=== PATIENT | female | born 1965 | race Caucasian/White ===

== ENCOUNTER 2020-04-09 10:29 | Emergency (ER) | payer OTHER ==
[2020-04-09 11:10] LABS: HEMOGLOBIN 11.9 gm/dl (12.3-15.3); RED BLOOD COUNT 4.5 M/UL (4.00-5.10); WHITE BLOOD COUNT 5.8 K/UL (4.5-11.0)
[2020-04-09 11:29] LABS: BUN/CREATININE RATIO 21 (0-10)
== END 2020-04-09 14:20 | disposition home or self-care (01) ==
LOC: ER1 10:29
PROVIDERS: Physician Assistant
DX: T14.8XXA Other injury of unspecified body region, initial encounter (principal); R59.0 Localized enlarged lymph nodes; R10.11 Right upper quadrant pain; M54.2 Cervicalgia; M54.6 Pain in thoracic spine; M54.5 Low back pain; R51.9 Headache, unspecified; I10 Essential (primary) hypertension; E11.9 Type 2 diabetes mellitus without complications; J44.9 Chronic obstructive pulmonary disease, unspecified; Z88.0 Allergy status to penicillin; V43.52XA Car driver injured in collision with other type car in traffic accident, initial encounter; Y92.410 Unspecified street and highway as the place of occurrence of the external cause
CPT/HCPCS: 70450; 71045; 72125; 72128; 72131; 80053; 85025; 99284; Q9967